=== PATIENT | female | born 1990 | race Caucasian/White ===

== ENCOUNTER 2019-09-07 12:32 | Emergency (ER) | payer OTHER ==
[~2019-09-07] VITALS: Ht 157.5 cm; Wt 90.9 kg
[2019-09-07] MEDS ORDERED: DIAZEPAM 5 MG/ML 2 ML SYRINGE IM ONE (13:45)
[2019-09-07 14:42] VITALS: BP 103/67
== END 2019-09-07 15:16 | disposition home or self-care (01) ==
LOC: EMS 12:35
DX: M79.7 Fibromyalgia (principal); M79.2 Neuralgia and neuritis, unspecified; Z90.49 Acquired absence of other specified parts of digestive tract; Z88.0 Allergy status to penicillin; Z98.890 Other specified postprocedural states
CPT/HCPCS: 96372; 99283; J1885